=== PATIENT | female | born 1940 | race Caucasian/White ===

== ENCOUNTER 2018-10-22 05:52 | Inpatient (IN) ==
--- NOTE | 2018-10-14 10:16 | EKG Report ---
Test Performed on : 10/14/2018 10:02:06 AM Test Reason : pat Blood Pressure : / mmHG Vent. Rate : 060 BPM Atrial Rate : 060 BPM P-R Int : 150 ms QRS Dur : 080 ms QT Int : 470 ms P-R-T Axes : 023 -02 006 degrees QTc Int : 470 ms Sinus rhythm. with premature atrial complexes. Otherwise normal ECG When compared with ECG of 04-FEB-2012 23:19, premature atrial complexes. are now present Confirmed by Luci Fields MD ([id number]) on 10/15/2018 12:02:00 PM
[2018-10-14 10:26] LABS: BASO# 0.02 X1000 (0.0-0.2); BASO% 0.2 % (0.0-0.8); EOS# 0.12 X1000 (0.0-0.7); EOS% 1.4 % (0.0-10.0); HEMATOCRIT 39.2 % (37.0-47.0); HEMOGLOBIN 13.3 g/dL (12.0-16.0); LYMPH# 1.63 X1000 (1.2-3.4); LYMPH% 19.4 % (20.5-51.1); MCH 31.9 PG (27-31); MCHC 33.9 g/dL (33-37); MONO# 0.58 X1000 (0.11-0.59); MONO% 6.9 % (1.7-9.3); MPV 9.3 FL (7.4-10.4); NEUT# 6.05 X1000 (1.4-6.5); NEUT% 72.1 % (42.2-75.2); PLT 317 X1000 (130-400); RBC 4.17 XMIL (4.2-5.4); RDW 12.3 % (11.5-14.5)
[2018-10-14 10:58] LABS: AGAP 14; CHLORIDE 94 mmol/L (98-107); GLUCOSE 113 mg/dL (70-104); POTASSIUM 3.2 mmol/L (3.5-5.1); SODIUM 138 mmol/L (136-145); TCO2 30 mmol/L (25-35)
[2018-10-14 10:59] LABS: BUN 14 mg/dL (8-22); CALCIUM 8.3 mg/dL (8.8-10.2); COSMO 277; CREATININE 0.8 mg/dL (0.5-0.9); ESTIMATED GFR > 60
--- NOTE | 2018-10-21 17:29 | HISTORY AND PHYSICAL ---
HISTORY: The patient is a 78-year-old female whom we have done a prior vaginal reconstruction using a mesh approximately 10 years ago, who now has had a total recurrence of her prolapse. We attempted a pessary fitting initially with a 2-3/4 and then to a 2-1/2, and it was well tolerated and was not expelled. However, the patient has had continued issues using the pessary and is now wishing to proceed with surgical intervention. She has had a prior anterior and posterior compartment Prolift as well as a prior sling. We talked about a colpectomy with she and her and she is wishing to proceed. Because of her prior mesh reconstruction, we will have to be very careful with our dissection and they understand that. PAST MEDICAL HISTORY: Positive for hypertension. SURGICAL HISTORY: Positive for subtotal thyroidectomy, vaginal hysterectomy, anterior and posterior compartment defect repair, mid urethral sling. She is noted to be a para 3-0-1-3. ALLERGIES: Codeine. CURRENT MEDICATIONS: Carvedilol 12.5, amlodipine 5, hydrochlorothiazide 12.5, and atorvastatin 40. She also takes baby aspirin. FAMILY HISTORY: Negative. SOCIAL HISTORY: Negative for tobacco, ETOH, or drug usage. PHYSICAL EXAMINATION: GENERAL: BMI is 34. HEENT: Normocephalic, atraumatic. PERRL. EOMI. No thyromegaly. CARDIOVASCULAR: Regular rate and rhythm without murmur, gallop, or rub. PULMONARY: Clear to auscultation and percussion. ABDOMEN: Soft. GENITOURINARY: shows total prolapse of the vagina. No mesh is seen or felt. NEUROLOGIC: Afocal. EXTREMITIES: Without clubbing, cyanosis, or edema. 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 She is admitted at this time for an obliterative procedure. The risks and benefits were discussed at length. cc: Chance Peralta MD MTDTimothy
[2018-10-22] MEDS ORDERED: REGLAN ONE (06:34)
[2018-10-22] MEDS ORDERED: PEPCID ONE (06:34)
[2018-10-22] MEDS ORDERED: LR 1,000 ML ONE ×2 (06:34→10:37)
[2018-10-22] MEDS ORDERED: KEFZOL 1 GM/D5W 2 GM/100 ML IVPB ONE (06:34)
[2018-10-22] MEDS ORDERED: DIPRIVAN 1% ONE ×2 (07:17→08:50)
[2018-10-22] MEDS ORDERED: XYLOCAINE-MPF 2% ONE ×2 (07:19→08:50)
[2018-10-22] MEDS ORDERED: SUFENTA ONE (07:20)
[2018-10-22] MEDS ORDERED: D10W 500 ML ONE (08:12)
[2018-10-22] MEDS ORDERED: SENSORCAINE 0.25%/EPI 1:200,000 ONE (08:12)
[2018-10-22] MEDS ORDERED: SODIUM CHLORIDE 0.9% ONE (08:12)
--- NOTE | 2018-10-22 08:12 | H&P REVIEW ---
H&P Update H&P Review: H&P was reviewed and patient was examined, No change has occurred in the patient's condition
[2018-10-22] MEDS ORDERED: QUELICIN (DOSE) ONE (08:51)
[2018-10-22] MEDS ORDERED: DECADRON ONE ×2 (08:54→10:32)
[2018-10-22] MEDS ORDERED: ZOFRAN ONE ×2 (08:54→10:32)
[2018-10-22] MEDS ORDERED: TORADOL ONE (08:57)
[2018-10-22] MEDS ORDERED: POTASSIUM CHLORIDE 40 MEQ in NS 500 ML IV ONE (09:30)
[2018-10-22] MEDS ORDERED: ZOFRAN ODT PO PRN (09:54)
[2018-10-22] MEDS ORDERED: ULTRACET 37.5MG/325MG PO PRN (09:57)
[2018-10-22 10:18] LABS: URINE SOURCE CATH
[2018-10-22 10:21] LABS: UR EPITHELIAL CELLS <10 /HPF (<10); URINE BACTERIA NEGATIVE /HPF; URINE RBC <10 /HPF (<10); URINE WBC <10 /HPF (<10)
[2018-10-22 10:22] LABS: BILIRUBIN URINE NEGATIVE (NEGATIVE); BLOOD URINE MODERATE (NEGATIVE); COLOR STRAW; GLUCOSE URINE NEGATIVE (NEGATIVE); KETONE URINE NEGATIVE (NEGATIVE); LEUKOCYTES URINE NEGATIVE (NEGATIVE); NITRITE URINE NEGATIVE (NEGATIVE); PROTEIN URINE TRACE mg/dL (NEGATIVE); SP GRAVITY URINE 1.007; TURBIDITY URINE CLEAR (CLEAR); UROBILINOGEN URINE NORMAL (NORMAL)
[2018-10-22] MEDS ORDERED: ULTRACET 37.5MG/325MG ONE (11:17)
[2018-10-22] MEDS: LR 1,000 ML IV SCH ×2 (11:52→21:30)
--- NOTE | 2018-10-22 14:45 | OPERATIVE NOTE ---
PROCEDURE DATE: 10/22/2018 PREOPERATIVE DIAGNOSIS: Total vault prolapse. POSTOPERATIVE DIAGNOSIS: Total vault prolapse, failed prior vaginal mesh procedure. PROCEDURE: Colpectomy. SURGEON: Chance Peralta MD ANESTHESIA: General. ESTIMATED BLOOD LOSS: 75 mL. HISTORY: The patient is a 78-year-old female with a history of prior vaginal mesh reconstruction in both the anterior and posterior compartments. The patient presented earlier this year with complete vault prolapse. She did not tolerate pessary management, and is admitted now for surgical intervention. The patient has had a prior mid urethral sling placed at the time of her vaginal reconstruction. OPERATIVE PROCEDURE: Patient is taken to the operating room and placed in the supine position. After adequate general anesthesia is obtained, she is placed in the [facility] cane stirrups and her vagina and perineum was prepped and draped in the usual fashion. The defect was easily identified. Allis clamps x2 were utilized to grasp the angles of the vaginal apex. We then dried the vaginal mucosa off thoroughly with 4 x 4 gauze, and then used a marking pen to delineate our anterior 2 compartment quadrants and her posterior 2 quadrants. Starting anteriorly, we performed a hydrodissection utilizing 0.25% Marcaine with epinephrine diluted 50% with normal saline. We placed approximately 40-50 mL in this dissection trying to dissect superficial to our prior mesh so that the mesh would remain attached ini the vesicovaginal space to the muscularis portion of the bladder. We were able to do this. However, we had a significant more amount of bleeding than typical because of the neovascularization. Cautery was utilized at multiple sites in pinpoint fashion to provide hemostasis. After completion of this anterior dissection, we then turned our attention towards the posterior dissection. Again, we used our marking pen to delineate the posterior 2 quadrants. We did the hydrodissection. We then used our scalpel to delineate the dissection line. We used traction and countertraction as we had in the anterior compartment with primarily sharp dissection to remove the posterior quadrants of the vaginal mucosa. Upon doing this, we then had completed our destructive portion of the surgery. We turned our attention more towards the reconstruction. Using with the most distal portion of the protrusion, we started with a 2.0 Vicryl ligature utilizing a pursestring suture placement in an imbricating fashion. We did the initial suture and tagged it for later identification, and continued to use this tag to manipulate the most distal portion. Concentric pursestring sutures were placed until we had complete involution of the defect. After doing this, we then had only remaining the portion of the vaginal mucosa that was remaining beginning at the urethrovesical neck anteriorly and the perineal body posteriorly. We had completed a total imbrication of the defect, and then turned our attention towards closure and recovering. We did this with interrupted 0 Vicryl ligature using a [id number] fashion until complete closure was noted. At this time, the bladder was drained of all urine. Cystoscope was introduced, and the bladder was filled approximately 250 mL of D10. There was no evidence of any mucosal abnormalities or prior mesh procedure placement. Both ureters were effluxing urine. There was no evidence of any mesh abnormalities from her prior placement of the mid urethral sling. The cystoscope was removed. Belle catheter was placed. Sponge count, instrument count, and needle counts were correct x3. Packs and drains were Belle. The patient was taken out of the [facility]-can stirrups and awakened, and taken to the recovery room with vital signs stable. cc: Chance Peralta MD
[2018-10-22] MEDS: TORADOL IV SCH ×2 (15:16→21:30)
[2018-10-22] MEDS: KLOR-CON POWDER PACKET PO SCH ×2 (15:17→21:31)
--- NOTE | 2018-10-22 18:43 | PROGRESS NOTE ---
DATE: 10/22/2018 SUBJECTIVE: Patient is alert and oriented x3, sitting in bed and eating dinner. She is not having any pain whatsoever. Her urine output is doing well. OBJECTIVE: Afebrile. Vital signs are stable. ASSESSMENT AND PLAN: Routine postoperative care. We discussed discharge planning and her discharge medications. She will be discharged home tomorrow after completion of her voiding trial, assuming she has a good evening. cc: Chance Peralta MD
[2018-10-22] MEDS ORDERED: LIPITOR PO SCH (21:00)
[2018-10-22] MEDS ORDERED: HYDROCHLOROTHIAZIDE PO SCH (21:00)
[2018-10-22] MEDS: COLACE PO SCH (21:31)
[2018-10-22] MEDS: NORVASC PO SCH ×3 (21:31→21:36)
[2018-10-22] MEDS: PERIDEX MT SCH (21:31)
[2018-10-22] MEDS: COREG PO SCH (21:31)
[2018-10-23] MEDS: TORADOL IV SCH ×2 (04:30→09:15)
[2018-10-23 08:30] VITALS: BP 162/62
[2018-10-23] MEDS ORDERED: HYDROCHLOROTHIAZIDE PO SCH (09:00)
[2018-10-23] MEDS ORDERED: NORVASC PO SCH (09:00)
[2018-10-23] MEDS: COLACE PO SCH (09:14)
[2018-10-23] MEDS: COREG PO SCH (09:15)
[2018-10-23] MEDS: PERIDEX MT SCH (09:15)
[2018-10-23] MEDS: KLOR-CON POWDER PACKET PO SCH (09:16)
--- NOTE | 2018-10-24 06:19 | DISCHARGE SUMMARY ---
ADMISSION DATE: 10/22/2018 DISCHARGE DATE: 10/23/2018 PRINCIPAL DIAGNOSIS: Pelvic organ prolapse. PROCEDURE: Colpectomy. HISTORY: The patient is a 78-year-old female with a history of prior vaginal reconstruction using mesh, who had a complete vault prolapse after this was performed approximately 10 years ago. The patient was admitted for definitive surgical intervention after failed pessary management. HOSPITAL COURSE: Patient underwent the above-stated procedure. Blood loss at time was 75 mL. Postoperative course has been uncomplicated. She is currently undergoing voiding trial and will be discharged home after completion of this. She was instructed in regular diet, decreased activity. She will return to see us in 3 weeks. DISCHARGE MEDICATIONS: Tramadol and Colace. cc: Chance Peralta MD
== END 2018-10-23 12:11 | disposition home or self-care (01) | DRG 748 ==
LOC: SURHOLD 05:52 → 4N 08:30
PROVIDERS: ADMIT Obstetrics & Gynecology; ATTEND Obstetrics & Gynecology
PROC: GY.CYST (2018-10-22 08:21)

== ENCOUNTER 2019-03-27 07:28 | Inpatient (IN) ==
--- NOTE | 2019-03-27 08:14 | PROVIDER DOCUMENTATION ---
HPI-General Adult - General Chief Complaint: Back Pain Stated Complaint: BACK PAIN Time Seen by Provider: 03/27/19 07:45 Source: patient, family Allergies/Adverse Reactions: Patient Allergies Allergy/AdvReac Type Severity Reaction Status Date / Time codeine [Codeine] Allergy Mild NAUSEA/VOMI Verified 03/27/19 09:32 TING Home Medications: Home Medication List Medication Instructions Recorded Confirmed Last Taken Type Amlodipine [Norvasc] 5 mg PO QAM 02/01/12 03/27/19 10/22/18 05:30 History ATORVAstatin [Lipitor] 40 mg PO HS 01/18/14 03/27/19 10/21/18 History Carvedilol 12.5 mg PO BID 01/18/14 03/27/19 10/22/18 05:30 History Amlodipine [Norvasc] 2.5 mg PO HS 10/14/18 03/27/19 10/21/18 History Aspirin 81 mg PO DAILY 10/14/18 03/27/19 2 Weeks Ago History ~09/30/18 Hydrochlorothiazide 12.5 mg PO DAILY 10/14/18 03/27/19 10/21/18 History - History of Present Illness -Gen Adult Nature of Presenting Problems: USUALLY VERY HEALTHY 79 YO FEMALE GRADUALLY SOB PAST 4 DAYS THEN VERY SOB LAST N IGHT WITH PAIN IN RIGHT SCAPULAR BACK. NOT TYPICAL FOR PT. NO ANTERIOR CHEST PAIN. NO FEVER,CHILLS,COUGH,N/V/D. TREATED FOR HTN PER DR BASHIR. Review of Systems - Adult - REVIEW OF SYSTEMS - ADULT Constitutional: reports: no symptoms reported. denies: chills, fever, fatique Eyes: reports: no symptoms reported Ears, Nose, Mouth & Throat: reports: see HPI. denies: throat pain Cardiovascular: reports: see HPI Respiratory: reports: see HPI Gastrointestinal: reports: no symptoms reported Genitourinary: reports: no symptoms reported Musculoskeletal: reports: no symptoms reported Integumentary: reports: no symptoms reported Neurological: reports: no symptoms reported Psychiatric: reports: no symptoms reported Endocrine: reports: no symptoms reported Hematologic/Lymphatic: reports: no symptoms reported Allergic/Immunologic: reports: no symptoms reported All Other Systems: Reviewed and Negative Past History - Adult - PAST MEDICAL HISTORY-ADULT Review of Records: reports: Nursing Assessment Review, Medications Reviewed, Social history reviewed & non-contributory. Major Childhood Illnesses: reports: denies history Cardiovascular: reports: HTN, hyperlipidemia Respiratory: reports: denies history Gastrointestinal: reports: denies history Obstetrical/Gynecological: reports: denies history Genitourinary: reports: denies history Musculoskeletal: reports: denies history Neurological: reports: denies history Endocrine/Immune: reports: denies history Other Conditions: reports: denies history - PRIOR SURGERIES/PROCEDURES Surgical/Procedure History: reports: other (bladder tact) - IMMUNIZATION STATUS Childhood Immunizations: See Nurse Assessment Flu Vaccine: See Nurse Assessment Physical Exam-General - PHYSICAL EXAM-ADULT Initial Vital Signs Reviewed: Yes (HYPOXIC ON RM AIR) - CONSTITUTIONAL General Appearance: alert, mild distress - EYES Eyes: PERRL/EOMI, pink conjunctivae - HEAD, EARS, NOSE, MOUTH & THROAT HENMT: normocephalic/atraumatic, moist mucous membranes - NECK Neck: non-tender, full range of motion, supple - RESPIRATORY Respiratory: lungs clear, normal breath sounds, other (TENDER AREA W/O SWELLING LOWER RIGHT SCAPULAR BACK. NO BRUISE OR SWELLING OR ECCHYMOSIS.). 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, grossly normal, no motor/sensory deficits - PSYCHIATRIC Psych/Mental Status: normal mood/affect, normal thought content, normal thought process Progress - PLAN OF CARE/RESULTS Progress/Plan/Lab Results: Vital Signs - 8 hr 03/27/19 07:35 Temperature 98.4 F Pulse Rate 72 Respiratory Rate 18 Blood Pressure 162/70 O2 Sat by Pulse Oximetry 80 L Orders Category Date Time Status Cardiac Monitoring DIRECTED Care 03/27/19 08:04 Active Saline Loc NOW Care 03/27/19 08:04 Active CHEST-PORTABLE [RAD] Stat Exams 03/27/19 08:04 Ordered CBC WITH ELECTRONIC DIFF [HEME] Stat Lab 03/27/19 08:04 Uncollected COMPREHENSIVE METABOLIC PANEL [CHEM] Stat Lab 03/27/19 08:05 Uncollected D-DIMER [COAG] Stat Lab 03/27/19 08:05 Ordered INFLUENZA SCREEN A/B Stat Lab 03/27/19 08:05 Uncollected LACTATE, PLASMA [CHEM] Stat Lab 03/27/19 08:05 Uncollected MAGNESIUM [CHEM] Stat Lab 03/27/19 08:05 Uncollected PRO B-NATRIURETIC PEPTIDE Stat Lab 03/27/19 08:05 Uncollected PROTIME WITH INR [COAG] Stat Lab 03/27/19 08:05 Uncollected PTT [COAG] Stat Lab 03/27/19 08:05 Uncollected TROPONIN T HIGH SENSITIVITY Stat Lab 03/27/19 08:05 Uncollected URINALYSIS W/POSS RFLX CULT [URINALYSIS] Stat Lab 03/27/19 08:05 Uncollected EKG [EKG] Stat Ther 03/27/19 08:04 Ordered Result Diagrams: 03/27/19 08:28 03/27/19 08:28 - REASSESSMENT Reassessment #1 Time Reassessed: 08:22 Status: unchanged (CXR WITH DIFFUSE INFILTRATES V DIFFUSE PUL EDEMA. NO HX CHF.) Reassessment #2 Time Reassessed: 09:50 Status: unchanged (D-DIMER JUST CAME BACK >2, ORDER CT CHEST ANGIOGRAM) - EKG 1 Time of EKG reading by physician:: 07:54 EKG Read and Signed by:: Jens Soares EKG Interpretation (*Must complete 3 of following elements*): Abnormal Rate: 70 Rhythm: SINUS W/ PVCs AND PACs [place]: normal [place] Interval: normal ST Wave: non-specific ST changes Comments: LONG QT, PVCs,PACS - XRAY 1 XRAY Study: Chest Impression: See EMR Report (PUL EDEMA) - CONSULTS/PCP/HOSPITALIST Notification #1 *Consult/PCP/Hospitalist*: JESSA DUPONT Time Discussed: 09:40 Consult Disposition: Admit Departure - Departure Date of Disposition Decision: 03/27/19 Time of Disposition Decision: 09:36 DIAGNOSIS: Hypoxemia, Hypokalemia, Hypomagnesemia Congestive heart failure (CHF) Qualifiers: Heart failure type: unspecified Heart failure chronicity: acute Qualified Code(s): I50.9 - Heart failure, unspecified Disposition: ADMITTED INPATIENT 09 Certified Medical Emergency: Emergent Condition: Fair Referrals and Follow-Ups: Barry Orozco MD [Primary Care Provider] - - Critical Care Note This patient required my direct & personal management of CC.: No
--- NOTE | 2019-03-27 08:20 | Diag Imaging Result Doc PS360 ---
CHEST-PORTABLE - 03/27/2019 INDICATION: SOB COMPARISON: 01/16/2018 FINDINGS: There is moderate cardiomegaly. There is new severe diffuse bilateral interstitial infiltrate compatible with pulmonary edema. No significant pleural effusion. IMPRESSION: Congestive heart failure. Electronically signed by Marco Bowman 03/27/2019 8:18 AM
[2019-03-27] MEDS ORDERED: LASIX IV ONE (08:32)
[2019-03-27 08:52] LABS: BASO# 0.02 X1000 (0.0-0.2); BASO% 0.2 % (0.0-0.8); EOS% 0.9 % (0.0-10.0); HEMATOCRIT 35.6 % (37.0-47.0); LYMPH# 0.87 X1000 (1.2-3.4); LYMPH% 7.8 % (20.5-51.1); MCH 32.6 PG (27-31); MCHC 33.7 g/dL (33-37); MCV 96.7 FL (81-99); MONO# 0.59 X1000 (0.11-0.59); MONO% 5.3 % (1.7-9.3); MPV 10.9 FL (7.4-10.4); NEUT# 9.55 X1000 (1.4-6.5); NEUT% 85.8 % (42.2-75.2); PLT 212 X1000 (130-400); RBC 3.68 XMIL (4.2-5.4); RDW 12.9 % (11.5-14.5); WBC 11.13 X1000 (4.8-10.8)
--- NOTE | 2019-03-27 08:58 | EKG Report ---
Test Performed on : 03/27/2019 07:48:00 AM Test Reason : SOB Blood Pressure : / mmHG Vent. Rate : 070 BPM Atrial Rate : 070 BPM P-R Int : 150 ms QRS Dur : 082 ms QT Int : 462 ms P-R-T Axes : 065 046 042 degrees QTc Int : 498 ms Sinus rhythm. with occasional premature ventricular complexes. and premature atrial complexes. Nonspecific ST and T wave abnormality Prolonged QT Abnormal ECG When compared with ECG of 14-OCT-2018 10:02, premature ventricular complexes. are now present Unconfirmed Result
[2019-03-27 09:10] LABS: AGAP 14; ALB/GLOB RATIO 1.3; ALBUMIN 3.7 g/dL (3.5-5.0); ALKALINE PHOSPHATASE 110 U/L (32-104); BUN 15 mg/dL (8-22); CALCIUM 7.2 mg/dL (8.8-10.2); CHLORIDE 94 mmol/L (98-107); COSMO 279; CREATININE 0.7 mg/dL (0.5-0.9); ESTIMATED GFR > 60; GLUCOSE 136 mg/dL (70-104); GOT 23 U/L (10-30); GPT 16 U/L (10-36); MAGNESIUM 1.3 mg/dL (1.5-2.7); POTASSIUM 3.1 mmol/L (3.5-5.1); SODIUM 138 mmol/L (136-145); TCO2 30 mmol/L (25-35); TOTAL BILIRUBIN 1.41 mg/dL (0.20-1.00); TOTAL PROTEIN 6.5 g/dL (6.3-8.3)
[2019-03-27 09:23] LABS: URINE SOURCE CLEAN CATCH
[2019-03-27 09:35] LABS: BILIRUBIN URINE NEGATIVE (NEGATIVE); BLOOD URINE TRACE (NEGATIVE); COLOR YELLOW; GLUCOSE URINE NEGATIVE (NEGATIVE); KETONE URINE NEGATIVE (NEGATIVE); LEUKOCYTES URINE NEGATIVE (NEGATIVE); NITRITE URINE NEGATIVE (NEGATIVE); PH URINE 6.5; PROTEIN URINE 50 mg/dL (NEGATIVE); SP GRAVITY URINE 1.016; TURBIDITY URINE CLEAR (CLEAR); UROBILINOGEN URINE NORMAL (NORMAL)
[2019-03-27] MEDS ORDERED: KLOR-CON PO ONE (09:35)
[2019-03-27] MEDS ORDERED: MAGNESIUM SULFATE 2 GM/S.W.I. 2 GM/50 ML IVPB IV ONE (09:35)
[2019-03-27 09:38] LABS: UR EPITHELIAL CELLS <10 /HPF (<10); URINE BACTERIA NEGATIVE /HPF; URINE RBC <10 /HPF (<10); URINE WBC <10 /HPF (<10)
[2019-03-27] MEDS ORDERED: PEPCID IV ONE (09:52)
[2019-03-27] MEDS ORDERED: PROTONIX IV ONE (09:52)
[2019-03-27] MEDS ORDERED: SODIUM CHLORIDE 0.9% INJ ONE ×2 (09:52)
[2019-03-27 10:14] LABS: INR 1.01; PROTIME 13.4 Seconds (11.0-16.0)
[2019-03-27 10:15] LABS: PTT 31.1 Seconds (22.3-41.8)
[2019-03-27] MEDS ORDERED: LOVENOX 1 MG/KG SUBQ ONE (10:28)
[2019-03-27 10:54] LABS: ALLEN TEST YES; BE 10.6 mmoll (-3.0-3.0); BLOOD TYPE ARTERIAL; HCO3-(ACT) 33.2 mmoll (20.0-26.0); METHB 1.1 % (0.0-1.5); MODALITY NRB; O2(CT) 16.3 mL/dL (15.0-23.0); O2HB 95.3 % (95.0-99.0); PCO2(98.6) 45 mmHg (35-45); PO2(98.6) 86 mmHg (60-100); SAMPLE BLOOD; SAO2 98.3 % (95.0-100.0); THB 12.1 g/dL (11.5-17.4)
[2019-03-27] MEDS ORDERED: LOVENOX SUBQ ONE (11:00)
--- NOTE | 2019-03-27 11:57 | Diag Imaging Result Doc PS360 ---
CT ANGIOGRM PULMONARY ARTERIES - 03/27/2019 INDICATION: difficulty breathing, left arm swollen TECHNIQUE: Axial CT images were obtained after administering intravenous contrast. Coronal MIP images were generated. COMPARISON: 03/27/2019 FINDINGS: The left arm was injected with contrast. The left brachial, subclavian, and brachiocephalic veins are all patent. There is no pulmonary embolus and. Moderate cardiomegaly. There is no adenopathy. There are small bilateral pleural effusions. There is hazy central interstitial pulmonary edema. There is some patchy atelectasis in the lung bases as well. There is a dense calcified granuloma in the left upper lobe. Major airways are all clear. Upper abdominal images are unremarkable. There is calcification of the mitral valve annulus suggesting mitral valve dysfunction. There are moderate degenerative changes of the spine. No acute or suspicious bony lesion. IMPRESSION: Congestive heart failure. Negative for pulmonary embolism. No abnormality of the veins of the left arm. This exam was performed using automated exposure control, adjustment of mA or kV according to patient size, and/or use of iterative reconstruction technique Electronically signed by Marco Bowman 03/27/2019 11:55 AM
[2019-03-27] MEDS ORDERED: ZOFRAN IV PRN (12:42)
[2019-03-27] MEDS ORDERED: TYLENOL PO PRN (12:42)
--- NOTE | 2019-03-27 15:17 | HISTORY AND PHYSICAL ---
PRIMARY CARE PROVIDER: Dr. Orozco. CHIEF COMPLAINT: Shortness of breath and back pain. HISTORY OF PRESENT ILLNESS: Ms. Vu is an 79-year-old female who carries a past medical history of hypertension, hyperlipidemia, mini-stroke in the past, intermittent lower extremity edema, who reports for the last 2 to 3 weeks she has felt bad and over the last 2 to 3 days, she has been hurting in her back on the right side of her shoulder blade with some associated shortness of breath. However, at 2 or 3 a.m. this morning, it awoke her out of her sleep. She described it as a sharp pain and when she stood up she became dizzy and weak. She did have some associated nausea with it as well as some diarrhea and chills but no vomiting or fever. No chest pain. Workup in the ED showed O2 saturations in the 80s. She was placed on a nonrebreather. She is currently up to 93%. Workup also showed an elevated D- dimer. A CT of the chest as well as bilateral venous Dopplers have been placed. She was hypokalemic, hypomagnesium. Her electrolytes are currently being replenished. Chest x-ray showed congestive heart failure. Currently awaiting her proBNP. We will go ahead and give her 1 dose of full- dose Lovenox and await her CTA studies. She does not report any recent travels or surgery. She did report that she traveled the [place] back in January for a wedding. PAST MEDICAL HISTORY: Per HPI. PAST SURGICAL HISTORY: Bladder tack. SOCIAL HISTORY: She is a nonsmoker. No alcohol. No illicit drug use. FAMILY HISTORY: Reviewed and not contributory. ALLERGIES: Codeine causes nausea and vomiting. HOME MEDICATIONS: 1. Norvasc 5 mg p.o. q.a.m. 2. Norvasc 2.5 mg p.o. at bedtime. 3. Aspirin 81 mg p.o. daily. 4. Lipitor 40 mg p.o. at bedtime. 5. Coreg 12.5 mg p.o. b.i.d. 6. Hydrochlorothiazide 12.5 mg p.o. daily. PHYSICAL EXAMINATION: GENERAL: Ms. Vu is a pleasant, 79-year-old, female, who is lying on the stretcher in no acute distress. HEENT: Atraumatic, normocephalic. PERRL. NECK: Supple. Trachea midline. CARDIOVASCULAR: S1, S2 appreciated. However, her rhythm was irregularly irregular but no murmurs, gallops, or rubs noted. RESPIRATORY: Lung sounds clear bilaterally. GASTROINTESTINAL: Soft, nontender, nondistended. Positive bowel sounds 4 quadrants. LOWER EXTREMITIES: Negative for edema. NEUROLOGIC: No focal deficits noted. DIAGNOSTIC DATA: Pending CTA of the chest, chest x-ray, congestive heart failure. LABORATORY DATA: Pending ABG, pending proBNP. White count 11, hemoglobin and hematocrit 12 and 35, platelet count is 212,000. D-dimer 2.93. Sodium 138, potassium 3.1, BUN 15, creatinine 0.7. Blood glucose is 136, magnesium 1.3, total bilirubin 1.41. Troponin 20. Urinalysis is negative. ASSESSMENT AND PLAN: 1. Elevated D-dimer, currently ruling out pulmonary embolism, deep venous thrombosis with CTA and bilateral venous Dopplers. Given her hypoxemia, we will go ahead and give her a shot of full- dose Lovenox. Continue to monitor those results as well as check an ABG. 2. Hypoxemia on arrival, improved with non-rebreather. Check an ABG. 3. Chest x-ray revealing congestive heart failure. Patient denies any history of heart failure. Currently awaiting her proBNP. We are awaiting a CT of the chest. We will order an echocardiogram. Per physical exam she does not sound wet. She does not have any edema on her lower extremities. 4. Hypertension. Will continue home medications. 5. Hyperlipidemia. Will continue statin. 6. History of mini strokes in the past. We will continue her home regimen. Further recommendation to follow physician evaluation, laboratory and diagnostic data. Dictated by LAURITA Andrews for Aniket Man MD Addendum: Patient seen and examined by myself. Agree with LAURITA note. It reflects my assessment and plan. Patient is being admitted to hospital for pulmonary edema. Will start Lasix IV and will check an echocardiogram. Will monitor BMP closely. cc: Aniket Man MD [facility]
[2019-03-27] MEDS: LASIX IV SCH (21:17)
[2019-03-27] MEDS: NORVASC PO SCH (21:18)
[2019-03-27] MEDS: COREG PO SCH (21:18)
[2019-03-27] MEDS: LIPITOR PO SCH (21:32)
[2019-03-28 06:34] LABS: BASO# 0.03 X1000 (0.0-0.2); BASO% 0.3 % (0.0-0.8); EOS# 0.06 X1000 (0.0-0.7); EOS% 0.5 % (0.0-10.0); HEMATOCRIT 34.8 % (37.0-47.0); HEMOGLOBIN 11.4 g/dL (12.0-16.0); IMM GRAN# 0.02 X1000 (0.0-0.04); IMM GRAN% 0.2 % (0.0-0.5); LYMPH# 1.19 X1000 (1.2-3.4); LYMPH% 10.9 % (20.5-51.1); MCH 31.5 PG (27-31); MCHC 32.8 g/dL (33-37); MCV 96.1 FL (81-99); MONO% 8.2 % (1.7-9.3); NEUT# 8.72 X1000 (1.4-6.5); NEUT% 79.9 % (42.2-75.2); PLT 247 X1000 (130-400); RBC 3.62 XMIL (4.2-5.4); RDW 12.5 % (11.5-14.5); WBC 10.92 X1000 (4.8-10.8)
--- NOTE | 2019-03-28 07:05 | Diag Imaging Result Doc PS360 ---
EXAM: CHEST-PORTABLE HISTORY: hypoxia TECHNIQUE: Single view COMPARISON: 03/27/2019 FINDINGS: The heart remains enlarged. Increased interstitial markings throughout both lungs. These are actually slightly less prominent. Small left pleural effusion. There is basilar atelectasis. IMPRESSION: Interval improvement with decreased pulmonary edema Electronically signed by Clive Morales 03/28/2019 7:03 AM
[2019-03-28 07:26] LABS: AGAP 13; ALB/GLOB RATIO 1.5; ALBUMIN 3.5 g/dL (3.5-5.0); ALKALINE PHOSPHATASE 99 U/L (32-104); BUN 12 mg/dL (8-22); CALCIUM 7.4 mg/dL (8.8-10.2); CHLORIDE 92 mmol/L (98-107); COSMO 280; CREATININE 0.8 mg/dL (0.5-0.9); ESTIMATED GFR > 60; GLUCOSE 113 mg/dL (70-104); GOT 16 U/L (10-30); GPT 11 U/L (10-36); MAGNESIUM 1.3 mg/dL (1.5-2.7); SODIUM 140 mmol/L (136-145); TCO2 35 mmol/L (25-35); TOTAL BILIRUBIN 2.43 mg/dL (0.20-1.00); TOTAL PROTEIN 5.8 g/dL (6.3-8.3)
[2019-03-28] MEDS ORDERED: MAGNESIUM SULFATE 4 GM/S.W.I. 4 GM/100 ML IVPB IV ONE (09:35)
[2019-03-28] MEDS ORDERED: KLOR-CON PO ONE (09:36)
--- NOTE | 2019-03-28 09:48 | EKG Report ---
Test Performed on : 03/28/2019 08:33:31 AM Test Reason : follow up Blood Pressure : / mmHG Vent. Rate : 068 BPM Atrial Rate : 068 BPM P-R Int : 148 ms QRS Dur : 082 ms QT Int : 494 ms P-R-T Axes : 051 012 015 degrees QTc Int : 525 ms Sinus rhythm. with premature atrial complexes. Nonspecific ST and T wave abnormality Prolonged QT Abnormal ECG When compared with ECG of 27-MAR-2019 07:48, (Unconfirmed) premature ventricular complexes. are no longer present Confirmed by Luci Fields MD ([id number]) on 03/30/2019 4:13:55 PM
[2019-03-28] MEDS: LASIX IV SCH ×2 (10:31→20:24)
[2019-03-28] MEDS: ASPIRIN PO SCH (10:32)
[2019-03-28] MEDS: COREG PO SCH ×2 (10:32→20:24)
[2019-03-28] MEDS: HYDROCHLOROTHIAZIDE PO SCH (10:32)
[2019-03-28] MEDS: NORVASC PO SCH ×2 (10:33→20:24)
--- NOTE | 2019-03-28 14:24 | ECHO REPORT ---
ORDER DATE: 03/27/2019 INTERPRETING PHYSICIAN: Owen Alexander MD. ECHOCARDIOGRAPHIC MEASUREMENTS: 1. Interventricular septum 0.9. 2. Left ventricular posterior wall 0.9. 3. Diastolic diameter 5.3. 4. Left atrium 5. 5. Aorta 3.0. FINDINGS: 1. Tricuspid valve was normal. 2. Aortic valve leaflets were trileaflet, calcified. 3. Pulmonic valve was normal. 4. Technically suboptimal study. Poor acoustic window. 5. Normal left ventricular cavity size. Estimated ejection fraction of 60 to 65 percent. 6. There is severe left atrial enlargement. 7. Mitral valve leaflets not well visualized. There is moderate mitral annular calcification. There is mild mitral regurgitation. There is grade 2 diastolic dysfunction. 8. Peak velocity across the aortic valve was 2.5 m/sec with a mean gradient of 10 mmHg, aortic valve area 1.9 cm2. There is more aortic sclerosis than stenosis associated with trace aortic regurgitation. 9. There is mild tricuspid regurgitation. Peak velocity across the tricuspid valve was 3.3 m/sec. Pulmonary systolic pressure of 54 mmHg. 10. There is no pericardial effusion or obvious intracardiac mass or thrombus seen. 11. Chordae tendinea were calcified on the mitral valve. 12. There is no pericardial effusion or obvious intracardiac mass or thrombus seen. cc: Owen Alexander MD
--- NOTE | 2019-03-28 15:16 | PROGRESS NOTE ---
DATE: 03/28/2019 SUBJECTIVE: The patient reports breathing better. She is still requiring oxygen by Venturi mask. No other complaints noted. OBJECTIVE: Vital Signs: Temperature 98.2 degrees, heart rate 68, respiratory 17, blood pressure 135/53, O2 saturation 95% on Venturi mask at 15%. General Examination: This is an 79-year-old female lying in bed, in no acute distress. Cardiovascular: S1, S2 heard. No murmurs, gallops, or rubs. Regular rate and rhythm. Respiratory: Minimal crackles noted in both pulmonary bases. Patient not using any accessory muscles or having work of breathing. Abdomen: Soft, nontender to palpation. Bowel sounds present. No organomegaly. Extremities: No clubbing, cyanosis, or edema. Peripheral pulses present in both legs. Neurological: The patient is alert and oriented x3. Moves all 4 extremities. LABORATORY DATA: White cell count 10.92, hemoglobin 11.4, hematocrit 34.8, platelets 247,000 with potassium 3.0 and magnesium 1.3. Total bilirubin 2.43. ASSESSMENT AND PLAN: 1. Acute respiratory failure secondary to pulmonary edema. Clinically, this patient is doing better. Reports less shortness of breath. Still requiring high amounts of oxygen. The x-ray shows less pulmonary edema. At this point, we will continue Lasix 40 mg IV q.12 hours. Echocardiogram is still pending. ABG from yesterday shows just respiratory alkalosis. At this point, we will continue with the same management. 2. Hypertension. Blood pressure is under control. However blood pressure has been in the range of 120 to 130 systolic blood pressure. We will continue to monitor. 3. Hyperlipidemia. We will continue with the statin. 4. History of transient ischemic attack. We will continue to monitor. 5. Disposition. I think we will keep this patient over the weekend. We will continue with Lasix. We will wait for results of echocardiogram. cc: Aniket Man MD
[2019-03-28] MEDS: LIPITOR PO SCH (20:24)
[2019-03-29 06:35] LABS: BASO# 0.02 X1000 (0.0-0.2); BASO% 0.2 % (0.0-0.8); EOS# 0.15 X1000 (0.0-0.7); EOS% 1.6 % (0.0-10.0); HEMATOCRIT 35.5 % (37.0-47.0); HEMOGLOBIN 11.7 g/dL (12.0-16.0); IMM GRAN# 0.02 X1000 (0.0-0.04); IMM GRAN% 0.2 % (0.0-0.5); LYMPH# 1.31 X1000 (1.2-3.4); MCH 31.4 PG (27-31); MCV 95.2 FL (81-99); MONO# 0.78 X1000 (0.11-0.59); MONO% 8.3 % (1.7-9.3); MPV 9.7 FL (7.4-10.4); NEUT% 75.7 % (42.2-75.2); PLT 275 X1000 (130-400); RBC 3.73 XMIL (4.2-5.4); RDW 12.4 % (11.5-14.5); WBC 9.38 X1000 (4.8-10.8)
[2019-03-29 07:58] LABS: ALBUMIN 3.4 g/dL (3.5-5.0); CALCIUM 7.6 mg/dL (8.8-10.2); CREATININE 0.9 mg/dL (0.5-0.9); MAGNESIUM 1.9 mg/dL (1.5-2.7); PHOSPHORUS 5.3 mg/dL (2.7-4.5); POTASSIUM 2.9 mmol/L (3.5-5.1)
[2019-03-29] MEDS: COREG PO SCH ×2 (09:13→21:21)
[2019-03-29] MEDS: HYDROCHLOROTHIAZIDE PO SCH (09:13)
[2019-03-29] MEDS: NORVASC PO SCH ×2 (09:13→21:21)
[2019-03-29] MEDS: LASIX IV SCH ×2 (09:13→21:21)
[2019-03-29] MEDS: ASPIRIN PO SCH (09:13)
[2019-03-29] MEDS: KLOR-CON PO SCH ×2 (09:18→21:21)
--- NOTE | 2019-03-29 10:09 | PROGRESS NOTE ---
DATE: 03/29/2019 SUBJECTIVE: The patient reports breathing better. Now, she is requiring only oxygen by Venturi mask. No other complaints. OBJECTIVE: Vital Signs: Temperature 97.8 degrees, heart rate 68, respiratory rate 19, blood pressure 120/60, O2 saturation 94 percent on Venturi mask. General Examination: This is a 89- year-old female lying in bed, in no acute distress. Cardiovascular: S1, S2 heard. No murmurs, gallops, or rubs. Regular rate and rhythm. Respiratory: Minimal crackles noted in both pulmonary bases. Patient not using any accessory muscles or having work of breathing. Abdomen: Soft, nontender to palpation. Bowel sounds present. No organomegaly. Extremities: No clubbing, cyanosis, or edema. Peripheral pulses present in both legs. Neurological: Patient is alert and oriented x3. Moves all 4 extremities. LABORATORY DATA: The white cell count is normal 9.38 with hemoglobin 11.7, hematocrit 35.5, platelets. This to 75, with potassium 2.9. Normal creatinine. Normal magnesium. ASSESSMENT AND PLAN: 1. Acute respiratory failure secondary to diastolic heart failure. The patient clinically reports feeling better. She was requiring just a non-rebreather mask and today she is on Venturi mask. We will continue to wean off from oxygen. We will continue with Lasix 40 mg IV q.12 hours. Echocardiogram shows diastolic dysfunction, ejection fraction 60%. At this point, we will continue with the same management. 2. Hypertension. Blood pressure is under control. We will continue with the same management. 3. Hyperlipidemia. We will continue with statin. 4. History of transient ischemic attack. We will continue to monitor. DISPOSITION: The patient is slowly getting better. Still requiring high amount of oxygen. We will continue to wean off. Once we see patient on nasal cannula requiring just a little bit of oxygen then we can let her go. Will replenish potassium today. We will check BMP tomorrow. cc: Aniket Man MD
[2019-03-29] MEDS: LIPITOR PO SCH (21:21)
[2019-03-30 06:45] LABS: BASO# 0.02 X1000 (0.0-0.2); BASO% 0.2 % (0.0-0.8); EOS# 0.22 X1000 (0.0-0.7); EOS% 2.5 % (0.0-10.0); HEMATOCRIT 36.6 % (37.0-47.0); HEMOGLOBIN 12.1 g/dL (12.0-16.0); IMM GRAN# 0.02 X1000 (0.0-0.04); IMM GRAN% 0.2 % (0.0-0.5); LYMPH# 1.71 X1000 (1.2-3.4); LYMPH% 19.8 % (20.5-51.1); MCH 31.5 PG (27-31); MCHC 33.1 g/dL (33-37); MCV 95.3 FL (81-99); MONO# 0.81 X1000 (0.11-0.59); MONO% 9.4 % (1.7-9.3); NEUT# 5.87 X1000 (1.4-6.5); NEUT% 67.9 % (42.2-75.2); PLT 276 X1000 (130-400); RBC 3.84 XMIL (4.2-5.4); RDW 12.3 % (11.5-14.5); WBC 8.65 X1000 (4.8-10.8)
[2019-03-30 07:23] LABS: ALBUMIN 3.4 g/dL (3.5-5.0); CALCIUM 7.7 mg/dL (8.8-10.2); MAGNESIUM 1.6 mg/dL (1.5-2.7); PHOSPHORUS 5.3 mg/dL (2.7-4.5); POTASSIUM 3.3 mmol/L (3.5-5.1)
--- NOTE | 2019-03-30 08:23 | PROGRESS NOTE ---
DATE: 03/30/2019 SUBJECTIVE: The patient reports feeling okay, not requiring oxygen by nasal cannula 3 L/minute. OBJECTIVE: Vital Signs: Temperature 98.6 degrees, heart rate 61, respiratory rate 14, blood pressure 131/74, O2 saturation 97% 2 L nasal cannula. General: This is an 79-year-old, female, lying in bed in no acute distress. Cardiovascular: S1, S2 heard. No murmurs, gallops, or rubs. Regular rate and rhythm. Respiratory: Minimal crackles noted in both pulmonary bases. Patient not using any accessory muscles or having work of breathing. Abdomen: Soft, nontender to palpation. Bowel sounds present. No organomegaly. Extremities: No clubbing, cyanosis, or edema. Peripheral pulses present in both legs. Neurological: The patient is alert and oriented x3. Moves all 4 extremities. LABORATORY DATA: Pending at the time of my dictation. ASSESSMENT AND PLAN: 1. Acute respiratory failure secondary to newly diagnosed diastolic heart failure. Clinically, this patient is doing fine, requiring definitely much less oxygen. She is requiring 3 liters of oxygen by nasal cannula. Will continue to wean off of oxygen. Will continue with Lasix. 2. Hypertension. Blood pressure is under control. Will continue with the same management. 3. Hyperlipidemia. Will continue with the statin. 4. History of transient ischemic attack. Will continue to monitor. 5. Hypertension. Blood pressure is under control. Will continue with the same management. 6. Hyperlipidemia. Will continue with statin. 7. Disposition. The patient continues to require a less amount of oxygen. Will continue to wean off on that. Labs indicate potassium 3.3, with creatinine 1.1. She is going to receive Klor- Con 60 mg this morning. Will check a BMP tomorrow and will go from there. I think tomorrow, if the patient is not requiring any oxygen supplementation and potassium is back to normal, she will be able to go home. cc: Aniket Man MD
[2019-03-30] MEDS: LASIX IV SCH ×2 (08:42→21:32)
[2019-03-30] MEDS: ASPIRIN PO SCH (08:42)
[2019-03-30] MEDS: COREG PO SCH ×2 (08:43→21:32)
[2019-03-30] MEDS: KLOR-CON PO SCH (08:43)
[2019-03-30] MEDS: NORVASC PO SCH ×2 (08:43→21:32)
[2019-03-30] MEDS: HYDROCHLOROTHIAZIDE PO SCH (08:43)
[2019-03-30] MEDS: LIPITOR PO SCH (21:32)
[2019-03-31 04:49] VITALS: BP 123/66
[2019-03-31 07:46] LABS: BASO# 0.03 X1000 (0.0-0.2); BASO% 0.3 % (0.0-0.8); EOS# 0.21 X1000 (0.0-0.7); EOS% 2.2 % (0.0-10.0); HEMATOCRIT 37.5 % (37.0-47.0); HEMOGLOBIN 12.5 g/dL (12.0-16.0); IMM GRAN# 0.02 X1000 (0.0-0.04); IMM GRAN% 0.2 % (0.0-0.5); LYMPH# 1.61 X1000 (1.2-3.4); LYMPH% 16.9 % (20.5-51.1); MCH 31.6 PG (27-31); MCHC 33.3 g/dL (33-37); MCV 94.7 FL (81-99); MONO# 0.95 X1000 (0.11-0.59); MPV 9.7 FL (7.4-10.4); NEUT# 6.71 X1000 (1.4-6.5); NEUT% 70.4 % (42.2-75.2); PLT 358 X1000 (130-400); RBC 3.96 XMIL (4.2-5.4); RDW 12.3 % (11.5-14.5); WBC 9.53 X1000 (4.8-10.8)
[2019-03-31 08:17] LABS: ALBUMIN 3.8 g/dL (3.5-5.0); CALCIUM 8.2 mg/dL (8.8-10.2); MAGNESIUM 1.5 mg/dL (1.5-2.7); PHOSPHORUS 5.6 mg/dL (2.7-4.5); POTASSIUM 3.1 mmol/L (3.5-5.1)
--- NOTE | 2019-04-01 08:52 | DISCHARGE SUMMARY ---
ADMISSION DATE: 03/27/2019 DISCHARGE DATE: 03/31/2019 PRIMARY CARE PHYSICIAN: Dr. Barry Orozco. ADMISSION DIAGNOSES: 1. Elevated D-dimer. 2. Hypoxemia, improved. 3. Congestive heart failure exacerbation. 4. Hypertension. 5. Hyperlipidemia. DISCHARGE DIAGNOSES: 1. Acute respiratory failure secondary to newly diagnosed diastolic heart failure, improved. 2. Hypertension. 3. Hyperlipidemia. 4. History of transient ischemic attack. SUMMARY OF FINDINGS: This is an 79-year-old female who presented with a 2 to 3 week history of feeling bad, hurting in her back on the right side of her shoulder blade with shortness of breath. She was awakened out of her sleep around 3 a.m. with a sharp pain, became dizzy and weak, had an elevated D-dimer of 2.93. We did a pulmonary arteriogram that showed negative for pulmonary embolism, congestive heart failure, but no abnormality of the veins in the left arm. We did an echocardiogram on 03/27/2019 that showed an ejection fraction of 60% to 65%. She was found to be in newly diagnosed diastolic congestive heart failure and was diuresed well. We supplemented any electrolytes that were low, and they were all improved today. It is felt that now she can safely be discharged home. DISCHARGE MEDICATIONS: Norvasc 2.5 mg p.o. at bedtime and 5 mg p.o. q.a.m., aspirin 81 mg p.o. daily, atorvastatin 40 mg p.o. at bedtime, carvedilol 12.5 mg p.o. b.i.d., Lasix 20 mg p.o. daily, hydrochlorothiazide 12.5 mg p.o. daily, and potassium 10 mEq p.o. daily. FOLLOWUP: She will need to follow up with her primary care physician in 1 to 2 weeks and call his office for an appointment. All discharge instructions have been reviewed with the patient and she verbalized understanding. TIME SPENT: 35 minutes. Dictated by LAURITA Pastor for Aniket Man MD Addendum: Patient seen and examined by myself. Agree with LAURITA note. It reflects my assessment and plan. Patient is being discharged in stable condition. Will be see by PCP in one to two weeks. cc: LAURITA Pastor MD Michael C. Donham, MD [facility]
--- NOTE | 2019-04-03 13:18 | Extremity Venous Study ---
PROCEDURE NAME: Venous U/S Bilateral Legs - 03/27/2019 REFERRING PROVIDER: LAURITA Andrews READING PHYSICIAN: Julius Payan MD [employer]ANCE ANALYST: Julio INDICATIONS: Shortness of breath and elevated D-dimer. FINDINGS: The deep and superficial veins of both lower extremities were imaged throughout their course. They are compressible and patent without thrombus. There is reflux noted of the right greater saphenous vein and superficial femoral vein, and the left common femoral vein. INTERPRETATION: No DVT or SVT of either lower extremity. There is reflux as described above. This appears to be unchanged compared to the prior study on 02/12/2018. cc: Julius Payan MD
== END 2019-03-31 07:40 | disposition home or self-care (01) | DRG 189 ==
LOC: ED 07:28 → EDIPHOLD 13:51 → 2N 03-28 03:07 → 4N 03-30 10:30
PROVIDERS: ATTEND Internal Medicine